=== PATIENT | male | born 1935 | race Caucasian/White ===

== ENCOUNTER 2018-05-10 09:54 | Inpatient (IN) | payer MEDICARE, BC ==
[~2018-05-10] VITALS: Ht 162.6 cm; Wt 97.1 kg
[~2018-05-10 09:54] MED LIST: CEFU500T PO; CYAN10002 IJ; FERR325T14 PO; LEVO750T31 PO; OMEP40CA5 PO; PANT40TA3 PO; PRED20TA PO; VALA10005 PO
[2018-05-10] MEDS ORDERED: IOHEXOL 240 MG/ML 50ML VIAL. PO ONE (10:30)
[2018-05-10] MEDS ORDERED: IOHEXOL 300 MG/ML 75 ML VIAL. IV ONE (10:30)
[2018-05-10 10:31] LABS: BASO # 0.1 x10^3/uL (0.0-0.2); BASO % 1 % (0-3); EOS # 0.1 x10^3/uL (0.0-0.7); EOS % 1 % (0-3); HEMATOCRIT 49.9 % (39.0-53.0); HEMOGLOBIN 16.3 g/dL (13.0-17.5); LYMPH # 2.2 x10^3/uL (1.0-4.8); LYMPH % 17 % (24-48); MEAN CORPUSCULAR HEMOGLOBIN 30 pg (25-35); MEAN CORPUSCULAR HGB CONC 33 g/dL (31-37); MEAN CORPUSCULAR VOLUME 92 fL (79-100); MONO # 0.9 x10^3/uL (0.0-1.1); MONO % 7 % (0-9); NEUT # 9.4 x10^3uL (1.8-7.7); NEUT % 74 % (31-73); PLATELET COUNT 286 x10^3/uL (140-400); RED BLOOD COUNT 5.45 x10^6/uL (4.30-5.70); RED CELL DISTRIBUTION WIDTH 13.5 % (11.5-14.5); WHITE BLOOD COUNT 12.7 x10^3/uL (4.0-11.0)
[2018-05-10 10:42] LABS: ALBUMIN 3.8 g/dL (3.4-5.0); ALBUMIN/GLOBULIN RATIO 0.8 (1.0-1.7); CALCIUM 9.6 mg/dL (8.5-10.1); CREATININE 1.8 mg/dL (0.7-1.3); GFR 36.5; POTASSIUM 4.2 mmol/L (3.5-5.1); TOTAL BILIRUBIN 0.5 mg/dL (0.2-1.0); TOTAL PROTEIN 8.4 g/dL (6.4-8.2)
[2018-05-10 12:05] LABS: CLARITY,URINE HAZY; COLOR,URINE AMBER; GLUCOSE,URINE 100 mg/dL (NEG)
[2018-05-10 12:07] LABS: BACTERIA,URINE 0 /HPF (0-FEW); BILIRUBIN,URINE NEG (NEG); NITRITE,URINE NEG (NEG); RBC,URINE 0 /HPF (0-2); SQUAMOUS EPITHELIAL CELL,UR OCC /LPF; UROBILINOGEN,URINE 0.2 mg/dL (0.2 mg/dL); WBC,URINE 0 /HPF (0-4)
--- NOTE | 2018-05-10 12:22 | RAD ---
CT abdomen and pelvis with oral contrast only: Reason for examination: History of colon cancer. Abdominal pain for 2 days. Helical images were obtained through the abdomen pelvis with no intravenous contrast administered but oral contrast was given (30 cc of Omnipaque 240). Reconstruction was performed in sagittal and coronal planes. Exposure: One or more of the following individualized dose reduction techniques were utilized for this examination: 1. Automated exposure control 2. Adjustment of the mA and/or kV according to patient size 3. Use of iterative reconstruction technique. The lung bases are clear. The heart size is normal with no pericardial effusion evident. No focal abnormality seen at the liver, spleen, adrenal glands or pancreas. There is cholelithiasis present. The kidneys show a small hypodense lesion at the upper pole of the left kidney probably representing a cyst measuring 1.4 cm in greatest dimension. There is a nonobstructing calculus in the lower pole left kidney. There is no hydronephrosis or evidence of obstructive uropathy. The abdominal aorta and inferior vena cava show no acute abnormalities but there is arteriosclerotic vascular calcification. There appears to be a large midline abdominal hernia containing bowel without incarceration. The stomach shows no wall thickening and is not abnormally distended. The small intestinal tract does show some mild dilatation down to the anastomosis in the right lower quadrant. There does not appear to be apparent obstruction or contrast movement through the small intestine. There are some diverticuli in this sigmoid colon but no evidence of diverticulitis. No abnormality seen at the bladder, prostate gland or seminal vesicles. No free fluid or free air is seen in the abdomen or pelvis. IMPRESSION: Small nonobstructing calculus in the lower pole of the left kidney. 1.4 cm lesion probably representing a cyst at the upper pole of the left kidney. Mild dilatation of small intestine to the colonic anastomosis but no apparent obstruction evident. Diverticuli in the sigmoid colon without diverticulitis. Electronically signed by: Roxana Jenkins MD (05/10/2018 12:18 PM) [facility] [place]
[2018-05-10] MEDS ORDERED: IV NORMAL SALINE 1,000ML 1,000 ML IV ONE (12:45)
[2018-05-10] MEDS ORDERED: ONDANSETRON PF 4 MG/2 ML VIAL. IV ONE (13:30)
[2018-05-10 14:40] VITALS: BP 116/69
[2018-05-10] MEDS: IV NORMAL SALINE 1,000ML 1,000 ML IV SCH (15:00)
--- NOTE | 2018-05-10 15:26 | PHYS DOC ---
Past History Past Medical History: Cancer, Other Past Surgical History: Cancer Surgery, Tonsillectomy, Other Alcohol Use: None Drug Use: None Adult General Chief Complaint Chief Complaint: ABDOMINAL PAIN HPI HPI Patient is a 82 year old male who presents with complaining of abdominal pain. Patient complaining of hematemesis episodes of cramping pain in area of ventral hernia since last night and last for a few minutes and repeated frequently with nausea and anorexia. Patient states he had a bowel movement yesterday morning and had flatus but his states he did not have any bowel movement since yesterday morning and had decrease of passing gas. Patient had history of colon cancer resection 3 years ago and developing give very large ventral hernia and his surgeon did not recommend surgical repair. Patient rated his pain as 0 at arrival to ER and during episodes of pain is 7/10. Patient denies chest pain, shortness of breath, fever and chills, urinary symptoms. Review of Systems Review of Systems Constitutional: Denies fever or chills [] Eyes: Denies change in visual acuity, redness, or eye pain [] HENT: Denies nasal congestion or sore throat [] Respiratory: Denies cough or shortness of breath [] Cardiovascular: No additional information not addressed in HPI [] GI: Reports abdominal pain, nausea, denies vomiting, bloody stools or diarrhea [ ] : Denies dysuria or hematuria [] Musculoskeletal: Denies back pain or joint pain [] Integument: Denies rash or skin lesions [] Neurologic: Denies headache, focal weakness or sensory changes [] Endocrine: Denies polyuria or polydipsia [] All other systems were reviewed and found to be within normal limits, except as documented in this note. Current Medications Current Medications Current Medications Medications (Trade) Dose Ordered Sig/Chasity Start Time Stop Time Status Last Admin Dose Admin Iohexol (Omnipaque 240 Mg/ml) 30 ml 1X ONCE 05/10/18 10:30 05/10/18 10:31 DC Iohexol (Omnipaque 300 Mg/ml) 75 ml 1X ONCE 05/10/18 10:30 05/10/18 10:31 DC Sodium Chloride 1,000 ml @ 100 mls/hr 1X ONCE 05/10/18 12:45 05/10/18 22:44 05/10/18 13:20 100 MLS/HR Allergies Allergies Allergies Coded Allergies Type Severity Reaction Last Updated Verified meperidine Allergy Severe 05/02/15 Yes Physical Exam Physical Exam Constitutional: Well developed, well nourished, no acute distress, non-toxic appearance. [] HENT: Normocephalic, atraumatic, oropharynx moist, no oral exudates, nose normal. [] Eyes: PERRLA, EOMI, conjunctiva normal, no discharge. [] Neck: Normal range of motion, no tenderness, supple, no stridor. [] Cardiovascular:Heart rate regular rhythm, no murmur [] Lungs & Thorax: Bilateral breath sounds clear to auscultation [] Abdomen: Very very large ventral hernia without tenderness, bowel sounds normal , soft, no tenderness, no masses, no pulsatile masses. [] Skin: Warm, dry, no erythema, no rash. [] Back: No tenderness, no CVA tenderness. [] Extremities: No tenderness, no cyanosis, no clubbing, ROM intact, no edema. [] Neurologic: Alert and oriented X 3, normal motor function, normal sensory function, no focal deficits noted. [] Psychologic: Affect normal, judgement normal, mood normal. [] Current Patient Data Vital Signs Vital Signs Date Time Temp Pulse Resp B/P (MAP) Pulse Ox O2 Delivery O2 Flow Rate FiO2 05/10/18 13:50 96 05/10/18 13:06 89 18 134/87 (103) Room Air 05/10/18 09:54 97.6 Lab Results Laboratory Tests Test 05/10/18 10:13 05/10/18 11:24 White Blood Count 12.7 x10^3/uL (4.0-11.0) H Red Blood Count 5.45 x10^6/uL (4.30-5.70) Hemoglobin 16.3 g/dL (13.0-17.5) Hematocrit 49.9 % (39.0-53.0) Mean Corpuscular Volume 92 fL (79-100) Mean Corpuscular Hemoglobin 30 pg (25-35) Mean Corpuscular Hemoglobin Concent 33 g/dL (31-37) Red Cell Distribution Width 13.5 % (11.5-14.5) Platelet Count 286 x10^3/uL (140-400) Neutrophils (%) (Auto) 74 % (31-73) H Lymphocytes (%) (Auto) 17 % (24-48) L Monocytes (%) (Auto) 7 % (0-9) Eosinophils (%) (Auto) 1 % (0-3) Basophils (%) (Auto) 1 % (0-3) Neutrophils # (Auto) 9.4 x10^3uL (1.8-7.7) H Lymphocytes # (Auto) 2.2 x10^3/uL (1.0-4.8) Monocytes # (Auto) 0.9 x10^3/uL (0.0-1.1) Eosinophils # (Auto) 0.1 x10^3/uL (0.0-0.7) Basophils # (Auto) 0.1 x10^3/uL (0.0-0.2) Prothrombin Time 9.7 SEC (9.4-11.4) Prothrombin Time INR 1.0 (0.9-1.1) PTT 27 SEC (23-33) Sodium Level 139 mmol/L (136-145) Potassium Level 4.2 mmol/L (3.5-5.1) Chloride Level 99 mmol/L (98-107) Carbon Dioxide Level 30 mmol/L (21-32) Anion Gap 10 (6-14) Blood Urea Nitrogen 15 mg/dL (8-26) Creatinine 1.8 mg/dL (0.7-1.3) H Estimated GFR (Cockcroft-Gault) 36.5 BUN/Creatinine Ratio 8 (6-20) Glucose Level 157 mg/dL (70-99) H Calcium Level 9.6 mg/dL (8.5-10.1) Total Bilirubin 0.5 mg/dL (0.2-1.0) Aspartate Amino Transferase (AST) 16 U/L (15-37) Alanine Aminotransferase (ALT) 19 U/L (16-63) Alkaline Phosphatase 72 U/L (46-116) Total Protein 8.4 g/dL (6.4-8.2) H Albumin 3.8 g/dL (3.4-5.0) Albumin/Globulin Ratio 0.8 (1.0-1.7) L Lipase 87 U/L (73-393) Urine Collection Type Unknown Urine Color [place] Urine Clarity Hazy Urine pH 5.5 Urine Specific [place] 1.025 Urine Protein 100 mg/dl (NEG-TRACE) Urine Glucose (UA) 100 mg/dL (NEG) Urine Ketones (Stick) 15 mg/dL (NEG) Urine Blood Neg (NEG) Urine Nitrite Neg (NEG) Urine Bilirubin Neg (NEG) Urine Urobilinogen Dipstick 0.2 mg/dL (0.2 mg/dL) Urine Leukocyte Esterase Neg (NEG) Urine RBC 0 /HPF (0-2) Urine WBC 0 /HPF (0-4) Urine Squamous Epithelial Cells Occ /LPF Urine Bacteria 0 /HPF (0-FEW) Urine Mucus Mod /LPF EKG EKG [] Radiology/Procedures Radiology/Procedures [address] [address] IMAGING REPORT Signed PATIENT: ELIAZAR LERNER ACCOUNT: [id number] : 1935 LOCATION: ER AGE: 82 SEX: M EXAM STATUS: REG ER ORD. PHYSICIAN: NEERU BELLA MD REASON: abd pain PROCEDURE: CT ABD PEL W/ORAL CONTRST ONLY CT abdomen and pelvis with oral contrast only: Reason for examination: History of colon cancer. Abdominal pain for 2 days. Helical images were obtained through the abdomen pelvis with no intravenous contrast administered but oral contrast was given (30 cc of Omnipaque 240). Reconstruction was performed in sagittal and coronal planes. Exposure: One or more of the following individualized dose reduction techniques were utilized for this examination: 1. Automated exposure control 2. Adjustment of the mA and/or kV according to patient size 3. Use of iterative reconstruction technique. The lung bases are clear. The heart size is normal with no pericardial effusion evident. No focal abnormality seen at the liver, spleen, adrenal glands or pancreas. There is cholelithiasis present. The kidneys show a small hypodense lesion at the upper pole of the left kidney probably representing a cyst measuring 1.4 cm in greatest dimension. There is a nonobstructing calculus in the lower pole left kidney. There is no hydronephrosis or evidence of obstructive uropathy. The abdominal aorta and inferior vena cava show no acute abnormalities but there is arteriosclerotic vascular calcification. There appears to be a large midline abdominal hernia containing bowel without incarceration. The stomach shows no wall thickening and is not abnormally distended. The small intestinal tract does show some mild dilatation down to the anastomosis in the right lower quadrant. There does not appear to be apparent obstruction or contrast movement through the small intestine. There are some diverticuli in this sigmoid colon but no evidence of diverticulitis. No abnormality seen at the bladder, prostate gland or seminal vesicles. No free fluid or free air is seen in the abdomen or pelvis. IMPRESSION: Small nonobstructing calculus in the lower pole of the left kidney. 1.4 cm lesion probably representing a cyst at the upper pole of the left kidney. Mild dilatation of small intestine to the colonic anastomosis but no apparent obstruction evident. Diverticuli in the sigmoid colon without diverticulitis. Electronically signed by: Amor Salmoon MD (05/10/2018 12:18 PM) [facility] [place] DICTATED AND SIGNED BY: AMOR SALOMON MD DATE: 05/10/18 1205 CC: MARCELLO OSCAR MD; NEERU BELLA MD ~ Course & Med Decision Making Course & Med Decision Making Pertinent Labs and Imaging studies reviewed. (See chart for details) Evaluation of patient in ER showed 82-year-old male patient with history of colon cancer and large ventral hernia presented with cramping abdominal pain since yesterday. Patient did not want to have pain medication but later on was uncomfortable and fentanyl was given. CT did not show obstruction. Because of very large ventral hernia and history of bowel obstruction plan to admit patient. Dr. Oscar accepted admission at 1235. Dragon Disclaimer Dragon Disclaimer This electronic medical record was generated, in whole or in part, using a voice recognition dictation system. Departure Departure: Impression: Primary Impression: Abdominal pain Additional Impressions: Ventral incisional hernia Leukocytosis Renal insufficiency History of colon cancer Disposition: 09 ADMITTED INPATIENT (at 1236) Admitting Physician: Marcello Oscar (accepted admission at 1235) Condition: IMPROVED Referrals: MARCELLO OSCAR MD (PCP) Problem Qualifiers NEERU BELLA MD May 10, 2018 15:26
[2018-05-10 19:38] VITALS: BP 127/81
[2018-05-10 23:08] VITALS: BP 109/67
[2018-05-11] MEDS: IV NORMAL SALINE 1,000ML 1,000 ML IV SCH (02:50)
[2018-05-11 05:30] VITALS: BP 113/68
[2018-05-11 11:07] LABS: BASO % 0 % (0-3); EOS # 0.2 x10^3/uL (0.0-0.7); EOS % 2 % (0-3); HEMATOCRIT 43.9 % (39.0-53.0); HEMOGLOBIN 14.7 g/dL (13.0-17.5); LYMPH # 2.1 x10^3/uL (1.0-4.8); LYMPH % 23 % (24-48); MEAN CORPUSCULAR HEMOGLOBIN 31 pg (25-35); MEAN CORPUSCULAR HGB CONC 33 g/dL (31-37); MEAN CORPUSCULAR VOLUME 92 fL (79-100); MONO # 0.9 x10^3/uL (0.0-1.1); MONO % 10 % (0-9); NEUT % 66 % (31-73); PLATELET COUNT 208 x10^3/uL (140-400); RED BLOOD COUNT 4.79 x10^6/uL (4.30-5.70); RED CELL DISTRIBUTION WIDTH 13.1 % (11.5-14.5); WHITE BLOOD COUNT 9.1 x10^3/uL (4.0-11.0)
--- NOTE | 2018-05-11 11:18 | HP ---
ADMIT DATE: 05/10/2018 HISTORY OF PRESENT ILLNESS: The patient is an 82-year-old male patient who came to the Emergency Room complaining of abdominal pain. He did complain of hematemesis and episodes of cramping pain in the area of ventral hernia since the night before admission. It lasts for a few minutes and repeated frequently with nausea and anorexia. The patient states that he had a bowel movement the day before admission and had flatus, but his stated that he did not have any bowel movement since the day before admission and had decreasing passing gas. The patient apparently has a history of colon cancer resection about 3 years ago and after that he developed a very large ventral hernia; however, his surgeon did not recommend any surgical repair. The patient rated his pain as 0 at arrival to the ER and during episodes of pain 7/10. He denied any chest pain, shortness of breath, fever, chills, dysuria, frequency, or hematuria. He was evaluated in the Emergency Room and his CT scan of the abdomen and pelvis showed that there appears to be a large midline abdominal hernia containing bowel without incarceration. The stomach shows no wall thickening and is not abnormally distended. The small intestinal track does show some mild dilatation down to the anastomosis in the right lower quadrant. There does not appear to be apparent obstruction or contrast movement through the small intestine. There are some diverticula in the sigmoid colon, but no evidence of diverticulitis. There is no abnormality seen at the bladder, prostate gland, or seminal vesicles. There is no free fluid or free air is seen in the abdomen or pelvis. The patient was admitted with abdominal hernia, ventral incisional hernia. His lab work showed that his creatinine slightly elevated at 1.8. His white cell count was slightly elevated at 12.7. He was admitted, started on IV fluid, and also clear liquid diet. We will observe him closely, and if he obviously has more symptoms, we will consider surgical consult transfer to appropriate hospital. PAST MEDICAL HISTORY: Significant for colon cancer, treated surgically before and was followed by Dr. Del Cid for this. He has ventral incisional hernia, which is monitored as well, coronary artery disease with status post PTCA with stent deployment, COPD, seizure disorder. He was on Keppra. He has also atrial fibrillation. Other medical problems include chronic kidney disease, type 2 diabetes, as well as hypertension. PAST SURGICAL HISTORY: Include surgical resection with partial colectomy, with resultant incisional hernia. FAMILY HISTORY: Unremarkable. SOCIAL HISTORY: He is and lives with his . He does not smoke, drink alcohol, or use any recreational drugs. ALLERGIES: HE IS ALLERGIC TO MEPERIDINE. MEDICATIONS: He is currently on following medications: He is on cyanocobalamin 1000 mcg intramuscularly once a month, ferrous sulfate 325 mg once a day. He is on omeprazole 40 mg once a day, prednisone 20 mg p.o. 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 REVIEW OF SYSTEMS: As per history of present illness. PHYSICAL EXAMINATION: GENERAL: On arrival to the Emergency Room, he looked well and was clearly in no apparent respiratory distress. No pallor, jaundice, cyanosis, or thyromegaly. No jugular venous distension. No lower limb edema. VITAL SIGNS: His heart rate was 101, blood pressure was 123/75, temperature was 97.6, respiratory rate 22, and oxygen saturation was 94% on room air. HEAD, EYES, EARS, NOSE, AND THROAT: Showed normocephalic, atraumatic. NECK: Supple. HEART: Showed normal first and second heart sounds. No gallop, rub, or murmur. CHEST: Clear to auscultation. No crepitation or rhonchi. ABDOMEN: Distended, soft, nontender. He has a large incisional hernia without any tenderness. There is no guarding or rigidity. Bowel sounds are normal, no pulsatile masses. NEUROLOGIC: He was awake, alert, oriented x 3, with normal motor and sensory function. No focal deficit. LABORATORY DATA: On arrival to the Emergency Room showed a white cell count 12,700, hemoglobin 16, hematocrit 49.9, MCV 92, and platelet count of 286,000. His serum sodium was 139, potassium 4.2, chloride 99, bicarbonate 30, anion gap of 10, BUN 15, creatinine 1.8, estimated GFR was 36.5, glucose 157, calcium was 9.6. Total bilirubin, AST, ALT, alkaline phosphatase were normal. Total protein was 8.4, albumin was 3.8, and lipase was 87. His urinalysis showed the urine was bartolo, hazy with a pH of 5.5, specific gravity 1.025. There is large amount of protein, small amount of ketones, large amount of glucose, negative for blood, nitrite, and leukocyte esterase. There are no rbc's, no wbc's, and no bacteria. His prothrombin time was 9.7, INR of 1, aPTT was 27. His CT scan of the abdomen showed that the lung bases are clear. The heart size is normal with no pericardial effusion evident. No focal abnormality seen in the liver, spleen, adrenal glands, or the pancreas. There is cholelithiasis present. The kidneys show a small hypodense lesion in the upper pole of the left kidney, probably representing a cyst measuring 1.4 cm in greatest dimension. There is a nonobstructing calculus in the lower pole of the left kidney. There is no hydronephrosis or evidence of obstructive uropathy. The abdominal aorta and inferior vena cava showed no acute abnormalities, but there is atherosclerotic vascular calcification. There appears to be large midline abdominal hernia containing bowel without incarceration. The stomach shows no wall thickening and is not abnormally distended. The small intestinal track does show some mild dilatation down to the anastomosis in the right lower quadrant. There does not appear to be apparent obstruction or contrast movement through the small intestine. There are some diverticula in the sigmoid colon, but no evidence of diverticulitis, no abnormality seen in the bladder, prostate gland and seminal vesicles. No free fluid or free air is seen in the abdomen and pelvis. ASSESSMENT AND PLAN: The patient was admitted, continued on IV fluid, started on a clear liquid diet. We will monitor him closely and obviously if he has no further episodes of nausea, vomiting, has passing gas, had bowel movement, will advance diet as tolerated. JUAN DAVID CASH MD DR: DARIO/augustine JOB#: [id number] / [id number]
[2018-05-11 11:21] LABS: ALBUMIN/GLOBULIN RATIO 0.8 (1.0-1.7); CALCIUM 8.3 mg/dL (8.5-10.1); CREATININE 1.5 mg/dL (0.7-1.3); POTASSIUM 4.4 mmol/L (3.5-5.1); TOTAL BILIRUBIN 0.4 mg/dL (0.2-1.0); TOTAL PROTEIN 6.8 g/dL (6.4-8.2)
[2018-05-11 11:54] VITALS: BP 105/60
--- NOTE | 2018-05-11 13:50 | DS ---
DATE OF DISCHARGE: 05/11/2018 HOSPITAL COURSE: The patient is an 82-year-old male patient who came to the Emergency Room with complaint of recurrent bouts of nausea, vomiting as well as abdominal pain, had an episode of a cramping abdominal pain in the area of ventral hernia since the night before admission. It lasted only for a few minutes and ____ frequently with nausea and vomiting. The patient apparently had a history of colon cancer, resection about 3 years ago. After that, he developed a very large ventral incisional hernia; however, his surgeon did not recommend any surgical repair. He was admitted initially and extensive evaluation showed no evidence of any bowel obstruction. He was started on IV fluid and clear liquid diet that we advanced. He tolerated very well. He was noted to be hypoxic, did 6-minute walk. The patient was discharged. His lab work showed that he was slightly dehydrated, has a slightly elevated white cell count. He did very well, tolerated his liquid diet without any problem and he advanced diet as tolerated and did very well, has had no further pain, no nausea, no vomiting and a decision was made to discharge him home on home oxygen. PHYSICAL EXAMINATION: GENERAL: When I saw him this afternoon, he was sitting on the edge of the bed comfortably in no apparent respiratory distress. No pallor, jaundice, cyanosis, or thyromegaly. No jugular venous distension. No limb edema. VITAL SIGNS: Her heart rate was 68, blood pressure 105/60, his temperature was 98.1, respiratory rate was 16, and oxygen saturation was 96% on 2 liters of oxygen by nasal cannula. HEAD, EYES, EARS, NOSE AND THROAT: Showed normocephalic, atraumatic. NECK: Supple. HEART: Showed normal first and second heart sounds. No gallop, rub or murmur. CHEST: Clear to auscultation. No crepitation or rhonchi. ABDOMEN: Distended, soft, nontender. No guarding or rigidity. No organomegaly. Hernial orifice intact. Bowel sounds normal. NEUROLOGIC: He was awake, alert, responding appropriately. All cranial nerves intact. He moves extremities without difficulty. LABORATORY DATA: Repeat lab work this morning showed a white cell count of 9100, hemoglobin 14.7, hematocrit 43.9, MCV 92, and platelet count of 208,000. Her serum sodium was 141, potassium 4.4, chloride 104, bicarbonate 33, anion gap of 4, BUN of 13, creatinine 1.5, estimated GFR was 45 mL per minute, his glucose 106, calcium was 8.3. Total bilirubin, AST, ALT, alkaline phosphatase were normal. His total protein was 6.8, albumin 3. His prothrombin time was normal and urinalysis was essentially unremarkable. DISCHARGE MEDICATIONS: He was discharged home to continue on home oxygen with a clear advice to go to [facility]. REVIEW OF SYMPTOMS: ____. FINAL DISCHARGE DIAGNOSES: Recurrent bouts of nausea, vomiting, abdominal pain has resolved, the cause of which is not very clear. [id number] kidney injury, resolved. Large ventral incisional hernia with no evidence of any obstruction has chronic obstructive pulmonary disease, coronary artery disease, status post PCI with stent deployment, seizure disorder, chronic kidney disease, type 2 diabetes and hypertension. JUAN DAVID CASH MD DR: DARIO/augustine JOB#: [id number] / [id number]
== END 2018-05-11 13:49 | disposition home health service (06) | DRG 391 ==
LOC: ER 09:54 → 1 SOUTH 12:59
PROVIDERS: ADMIT Family Medicine; ATTEND Family Medicine
DX: R10.9 Unspecified abdominal pain (principal); N17.0 Acute kidney failure with tubular necrosis; K43.2 Incisional hernia without obstruction or gangrene; D72.829 Elevated white blood cell count, unspecified; E11.22 Type 2 diabetes mellitus with diabetic chronic kidney disease; E86.0 Dehydration; G40.909 Epilepsy, unspecified, not intractable, without status epilepticus; I12.9 Hypertensive chronic kidney disease with stage 1 through stage 4 chronic kidney disease, or unspecified chronic kidney disease; I25.10 Atherosclerotic heart disease of native coronary artery without angina pectoris; I48.91 Unspecified atrial fibrillation; J44.9 Chronic obstructive pulmonary disease, unspecified; K57.30 Diverticulosis of large intestine without perforation or abscess without bleeding; N18.9 Chronic kidney disease, unspecified; K80.20 Calculus of gallbladder without cholecystitis without obstruction; N20.0 Calculus of kidney; R09.02 Hypoxemia; Z85.038 Personal history of other malignant neoplasm of large intestine; Z95.5 Presence of coronary angioplasty implant and graft; Z88.8 Allergy status to other drugs, medicaments and biological substances; Z79.84 Long term (current) use of oral hypoglycemic drugs
CPT/HCPCS: 36415; 74176; 80053; 81001; 83615; 83690; 85025; 85610; 85730; 90471; 90756; 96374; 96375; J2405; J3010; 99285-25; J7030; Q2035

== ENCOUNTER → 2018-12-10 | Outpatient (CLI) | payer MEDICARE, BC ==
[~2018-12-10] MED LIST changes: +IOHEXOL 240 MG/ML 50ML VIAL. ONE; +IOHEXOL 300 MG/ML 75 ML VIAL. IV ONE
--- NOTE | 2018-12-10 10:26 | RAD ---
Examination: CT chest abdomen pelvis with IV contrast HISTORY: History of colon cancer, follow-up Comparison: 05/10/2018 TECHNIQUE: Axial CT images of the chest abdomen pelvis were performed with IV contrast. Coronal and sagittal reformats are performed Exposure: One or more of the following individualized dose reduction techniques were utilized for this examination: 1. Automated exposure control 2. Adjustment of the mA and/or kV according to patient size 3. Use of iterative reconstruction technique FINDINGS: The visualized thyroid gland grossly appears unremarkable. The central airways are patent. The heart size grossly appears unremarkable. Coronary artery calcifications. Small calcified mediastinal lymph nodes identified. Linear scarring changes identified in the left lung base similar to prior exam. No evidence of pleural effusion or pneumothorax. There is mild diffuse decreased attenuation noted in the liver likely hepatic steatosis. There is a cystic structure identified in the right lobe of the liver measuring 1.4 cm similar to prior exam. The visualized spleen, adrenals grossly appears unremarkable. Collapsed appearing gallbladder. Small densities identified in the gallbladder probably gallstones. The stomach is mildly distended. The visualized pancreas grossly appears unremarkable. The small bowel is nondilated. Feces and gas noted in the colon. Multiple sigmoid colon diverticulosis. Surgical changes identified in the colon. The bilateral kidneys enhance symmetrically. Cystic structure identified in the bilateral kidneys likely cysts. There is a 1.9 cm density identified in the left kidney could be lobulation or mass. Moderate aortic atherosclerosis. Urinary bladder is mildly distended. IMPRESSION: 1. 1.9 cm density identified in the left kidney could be cortical lobulation or mass. Recommend ultrasound for further evaluation. 2. 1.4 cm cystic structure identified in the liver likely a cyst similar to prior exam. Hepatic steatosis. 3. Surgical changes identified in the colon. 4. Sigmoid colon diverticulosis. Mild thickened appearance of the sigmoid colon wall probably due to nondistention. 5. Cholelithiasis. Electronically signed by: Olu Fields MD (12/10/2018 10:23 AM) [place] [id number]
== END | disposition home or self-care (01) ==
LOC: CT 08:16
PROVIDERS: ATTEND Internal Medicine Hematology & Oncology
DX: K76.0 Fatty (change of) liver, not elsewhere classified (principal); K57.30 Diverticulosis of large intestine without perforation or abscess without bleeding; K80.20 Calculus of gallbladder without cholecystitis without obstruction; Q44.6 Cystic disease of liver; I70.0 Atherosclerosis of aorta; Z85.038 Personal history of other malignant neoplasm of large intestine
CPT/HCPCS: 71260; 74177; Q9967

== ENCOUNTER → 2019-03-11 | Outpatient (CLI) | payer MEDICARE, BC ==
[~2019-03-11] MED LIST changes: -IOHEXOL 300 MG/ML 75 ML VIAL. IV ONE; +OMEP40CA45 PO; -OMEP40CA5 PO
--- NOTE | 2019-03-11 12:02 | RAD ---
CT study chest and abdomen and pelvis without contrast Clinical indications: Follow-up of colon cancer. TECHNIQUE: GI contrast was administered per mouth. Patient refused intravenous contrast. Without IV contrast, the sensitivity to detect organ pathology is decreased. Helical CT scanning of the abdomen and pelvis was performed. PQRS compliance Statement One or more of the following individualized dose reduction techniques were utilized for this study: 1. Automated exposure control 2. Adjustment of the mA and/or kV according to patient size 3. Use of iterative reconstruction technique Comparison: December 10, 2018. CHEST CT: Calcified old granulomatous lymph nodes are seen within the mediastinum and right hilum. Otherwise no enlarged thoracic lymphadenopathy is evident. No focal aneurysmal dilatation of the thoracic aorta is seen. The heart size is normal and no pericardial effusion is evident. Mild calcified atheromatous disease of the coronary arteries is seen. Calcified granuloma of the right lower lobe is seen. On images, 54-55 and series 2, there is a new posterior left lower lobe lung nodule measuring 3 mm in size. No other lung nodule is evident. No lung consolidation is seen. There is chronic linear scarring. Centrilobular emphysema of the the upper lobes is seen. No pleural effusion or pneumothorax is evident. The proximal bronchial tree is patent. No lytic process is seen. IMPRESSION: New small 3 mm lung nodule of the left lower lobe. No other new abnormality. Calcified atheromatous disease of the coronary arteries. ABDOMEN AND PELVIS CT: Again seen is a cyst of the right lobe of the liver which is unchanged. No new hepatic lesion is seen on this noncontrast study. The spleen is not enlarged. Pancreas is homogeneous in appearance on this noncontrast study. Radiopaque gallstones are seen within the gallbladder. Gallbladder is contracted. This is a chronic finding. No extra hepatic biliary ductal dilatation is seen. No adrenal mass is evident. Small nonobstructing punctate stone of lower pole of the left kidney is seen. No hydronephrosis or hydroureter or ureteral stone is evident. Again seen are hypodense nodules of the left kidney which are less well-defined in today's study due to lack of IV contrast. Hounsfield units measurements on the previous study were under 20 and therefore most likely represent cysts. On the previous study, a cortical lobulation was seen worrisome for a left renal mass. This measured almost 2 cm in size on the previous study. This is difficult to evaluate without intravenous contrast. Lobulation has not changed in size. No focal aneurysmal dilatation of the abdominal aorta is seen. No enlarged abdominal or pelvic lymphadenopathy is evident. The prostate gland is enlarged and measures 5.6 cm transversely. Urinary bladder wall is smooth. Sigmoid diverticulosis is seen without diverticulitis. Right hemicolectomy is evident. No obstructive bowel pattern is evident. No soft tissue mass is seen. Peristaltic contraction of the antrum stomach is seen. No free air or or free fluid or mesenteric edema is seen. No lytic process is seen. IMPRESSION: Stable cyst of the liver. Cholelithiasis. Chronic contraction of the gallbladder. Left renal cortical lesion which may represent a small renal neoplasm. This is better visualized on the previous CT study of the abdomen and is not well-visualized today without IV contrast. It is located within the lateral aspect of the upper pole of the left kidney. Further evaluation with renal ultrasound is recommended first. Nonobstructing punctate stone of lower pole of the left kidney. Enlarged prostate gland. Sigmoid diverticulosis without diverticulitis. Electronically signed by: Patrick Gamino MD (03/11/2019 11:59 AM) [facility]
== END | disposition home or self-care (01) ==
LOC: CT 07:51
PROVIDERS: ATTEND Internal Medicine Hematology & Oncology
DX: C19 Malignant neoplasm of rectosigmoid junction (principal); J98.4 Other disorders of lung; I25.10 Atherosclerotic heart disease of native coronary artery without angina pectoris; J43.2 Centrilobular emphysema; R91.1 Solitary pulmonary nodule; K76.89 Other specified diseases of liver; K80.20 Calculus of gallbladder without cholecystitis without obstruction; N28.89 Other specified disorders of kidney and ureter; K57.20 Diverticulitis of large intestine with perforation and abscess without bleeding
CPT/HCPCS: 71250; 74176

== ENCOUNTER → 2019-10-20 | Outpatient (CLI) | payer MEDICARE, BC ==
[~2019-10-20] MED LIST changes: +IOHEXOL 300 MG/ML 75 ML VIAL. IV ONE
--- NOTE | 2019-10-20 10:15 | RAD ---
CT chest abdomen pelvis without contrast Indication: Colon cancer Technique: Noncontrast CT imaging was performed of the chest, abdomen, pelvis, multiplanar reconstruction images submitted. Oral contrast was given. One or more of the following individualized dose reduction techniques were utilized for this examination: 1. Automated exposure control 2. Adjustment of the mA and/or kV according to patient size 3. Use of iterative reconstruction technique. Comparison: March 11, 2019 CHEST: Findings: There is increased mild atelectasis of the left lower lobe, previously seen small left lower lobe nodule not well-visualized on this exam. No new convincing pulmonary nodularity is identified. There is emphysema with upper zone predominance. There is no pleural or pericardial fluid, pneumothorax, or lobar infiltrate. There are again some calcified mediastinal and right hilar nodes also calcified right lower lobe lung nodule. There is again coronary calcification. There is calcification of the aortic valvular leaflets. Thoracic aortic caliber is within normal limits. There are again multiple small mediastinal nodes. There is again right gynecomastia. IMPRESSION: 1. There is increased left lower lobe atelectasis, previously seen small left lower lobe nodule not well-visualized on this exam. No new suspicious pulmonary nodularity is identified. 2. There is emphysema. There is coronary calcification. Abdomen pelvis FINDINGS: There is again colonic diverticulosis greatest of the sigmoid colon and ascending colon. While not well distended during exam, there is appearance of long segment sigmoid colonic wall thickening extending to the rectum and also of most of the descending colon, not associated with significant adjacent localized inflammatory change. Bowel is not significantly dilated. There again has been right hemicolectomy. Accurate evaluation of abdominal visceral organs is limited without intravenous contrast, no new obvious abnormality of the liver, pancreas, or spleen. There is stable hypodense lesion of the right lobe of liver about 1.4 cm, density measurements of a cyst. There is again cholelithiasis. There is no adrenal nodularity. There is similar strandy change of the perinephric fat greater on the left. There is no hydronephrosis of either kidney. There are a couple of tiny adjacent inferior left renal calculi measuring less than 0.2 cm as seen previously. There is again focus of exophytic density arising from the mid to superior left kidney estimated about 1.8 cm CC grossly similar compared with December 10, 2018 exam when was seen to enhance to a similar degree as adjacent renal parenchyma, internal density measurements on this exam not of a simple cyst at 28 Hounsfield units. There is atherosclerotic calcification of the abdominal aorta and iliac arteries. There is again prostatomegaly indenting the base of urinary bladder. There is L4-5 degenerative disc disease. There is lumbar facet degenerative change. No new significantly enlarged nodes are identified. IMPRESSION: 1.There is again suspected mid to superior left renal mass concerning for renal cell carcinoma until proven otherwise. 2. There is now appearance of long segment wall thickening throughout the sigmoid colon to the rectum and involving most of the descending colon concerning for colitis rather than diverticulitis given the long segment of involvement, although no adjacent inflammatory-type change. There is sigmoid diverticulosis. 3. There again small inferior left renal calculi. 4. There is cholelithiasis. 5. There is again prostatomegaly. Electronically signed by: Alex Wong MD (10/20/2019 10:12 AM) [id number]
== END ==
LOC: CT 07:46
PROVIDERS: ATTEND Internal Medicine Hematology & Oncology
DX: C19 Malignant neoplasm of rectosigmoid junction (principal); J98.11 Atelectasis; J43.9 Emphysema, unspecified; I25.10 Atherosclerotic heart disease of native coronary artery without angina pectoris; I70.0 Atherosclerosis of aorta; K80.20 Calculus of gallbladder without cholecystitis without obstruction; N20.0 Calculus of kidney; K57.30 Diverticulosis of large intestine without perforation or abscess without bleeding; M51.36 Other intervertebral disc degeneration, lumbar region
CPT/HCPCS: 71250; 74176

== ENCOUNTER 2020-06-30 12:22 | Emergency (ER) | payer MEDICARE, BC ==
[~2020-06-30] VITALS: Ht 162.6 cm; Wt 99.6 kg
[~2020-06-30 12:22] MED LIST changes: -IOHEXOL 240 MG/ML 50ML VIAL. ONE; -IOHEXOL 300 MG/ML 75 ML VIAL. IV ONE
--- NOTE | 2020-06-30 12:46 | PHYS DOC ---
Past History Past Medical History: Cancer, Other Past Surgical History: Cancer Surgery, Tonsillectomy, Other Alcohol Use: None Drug Use: None General Adult EDM: Chief Complaint: MULTIPLE COMPLAINTS HPI: HPI: 84 yo M PMH colon cancer (unsure staging, dc'ed oral chemo 1 yr ago) w/h/o 7 abdominal surgeries 2/2 colon ca, presents to the ED with complaints of difficulty with voiding that started on Friday, postoperative from robotic assisted laparoscopic cholecystectomy with Dr. Pierre. Patient complains of urinary urgency with only "dribbles," of urine. Pt c/o "blow outs" described a loose/watery, light brown bowel movements such that patient has soiled his clothing. Last bowel movement was this morning. reports patient follows with Aubree Gonzalez, [facility] and has an MRI of his kidneys scheduled in 3-1/2 weeks. Review of Systems: Review of Systems: Constitutional: Denies fever or chills Eyes: Denies change in visual acuity HENT: Denies nasal congestion or sore throat Respiratory: Denies cough or shortness of breath Cardiovascular: Denies chest pain or edema GI: Denies nausea, vomiting, melena or hematochezia : Denies dysuria, hematuria, urinary or bowel retention Musculoskeletal: Denies back pain, saddle anesthesia, CVA tenderness or joint pain Integument: Denies rash or diaphoresis Neurologic: Denies headache, neck pain, focal weakness or sensory changes Endocrine: Denies polyuria or polydipsia Lymphatic: Denies swollen glands Psychiatric: Denies depression or anxiety Allergies: Allergies: Allergies Coded Allergies Type Severity Reaction Last Updated Verified meperidine Allergy Severe 05/02/15 Yes Physical Exam: PE: Constitutional: Well developed, in pain, ambulatory HENT: Normocephalic, atraumatic, Eyes: EOMI, conjunctiva normal, no discharge. Neck: Normal range of motion, supple, Cardiovascular: S1/2 present, regular rhythm Lungs & Thorax: Speaking in full sentences, bilateral equal chest rise, no tachypnea or increased work of breathing Abdomen: soft, distended, laparoscopic sites with no purulent drainage or erythema-or C/D/I, no wound dehiscence, non localized abdominal wall tenderness, no abdominal wall rigidity Skin: Warm, dry, no erythema, no rash. [] Back: No midline tenderness, no CVA tenderness, no saddle anesthesia, Extremities: No tenderness, no cyanosis, no unilateral lower extremity edema Neurologic: Alert and oriented X 3, normal motor function, normal sensory function, no focal deficits noted. [] Psychologic: Affect normal, judgement normal, mood normal. [] EKG: EKG: Sinus rhythm 85 bpm, no axis deviation, normal intervals, no T wave inversions, no ST elevations or ST depressions Radiology/Procedures: Radiology/Procedures: IMAGING REPORT Signed PATIENT: ELIAZAR LERNER ACCOUNT: [id number] : 1935 LOCATION: ER AGE: 84 SEX: M EXAM STATUS: REG ER ORD. PHYSICIAN: ARIE CRENSHAW DO REASON: abd pain PROCEDURE: PORTABLE CHEST 1V XR CHEST 1V History: Reason: abd pain / Spl. Instructions: / History: Comparison: August 23, 2015 Findings: Patchy bibasilar opacities. Possible small layering pleural effusions. Enlarged cardiac size. No pneumothorax. Impression: 1. Patchy bibasilar opacities, may represent atelectasis or developing consolidations. If persistent clinical concern, recommend follow-up. Electronically signed by: Josef Agee DO (06/30/2020 1:01 PM) [id number] DICTATED AND SIGNED BY: JOSEF AGEE DO DATE: 06/30/20 1300 CC: MARCELLO OSCAR MD; ARIE CRENSHAW DO ~MTH0 0 IMAGING REPORT Signed PATIENT: ELIAZAR LERNER ACCOUNT: [id number] : 1935 LOCATION: ER AGE: 84 SEX: M EXAM STATUS: REG ER ORD. PHYSICIAN: ARIE CRENSHAW DO REASON: abd pain 2 days postop lap dulce maria, urinary retention PROCEDURE: CT ABD PEL W/ORAL CONTRST ONLY CT STUDY OF THE ABDOMEN AND PELVIS WITHOUT CONTRAST CLINICAL INDICATIONS: Abdominal pain for 2 days after a laparoscopic cholecy stectomy. Urinary retention. TECHNIQUE: Noncontrast helical CT scanning of the abdomen and pelvis was performed. Without contrast, the sensitivity to detect organ pathology and GI tract pathology is decreased. PQRS compliance Statement One or more of the following individualized dose reduction techniques were utilized for this study: 1. Automated exposure control 2. Adjustment of the mA and/or kV according to patient size 3. Use of iterative reconstruction technique COMPARISON: December 10, 2018. FINDINGS: Again seen is a cyst of the right lobe of the liver. The spleen is not enlarged. No pancreatic enlargement is seen. The gallbladder is surgically absent. No extrahepatic biliary ductal dilatation is seen. No adrenal mass is evident. 2 small nonobstructing punctate stones lower pole left kidney are seen. No hydronephrosis or hydroureter or ureteral stone is seen. Again seen are cysts of the left kidney. However, on the previous study, a lateral upper pole solid nodule is evident. This is not as well delineated today given the lack of IV contrast. Based on the contour bulge, there has been no significant change measuring just under 2 cm. Urinary bladder is distended. Urinary bladder wall is smooth. No focal aneurysmal dilatation of the abdominal aorta is seen. No enlarged abdominal or pelvic lymphadenopathy is evident. Prostate gland is mildly enlarged and indents the floor of the urinary bladder. The prostate gland measures 5.1 transversely. Colonic diverticulosis is seen most prominently involving the sigmoid colon without diverticulitis. There is nondistention of the colon. Enterocolostomy is seen within the anterior mid abdomen. No obstructive bowel pattern is seen. Anterior abdominal wall scarring and edema is seen. On series 2 image 98, there is a small subcutaneous fluid collection within the anterior left lower abdominal wall subcutaneous soft tissues measuring 19 mm. Small abscess is possible if there are clinical findings of such. No lytic process is seen. No lung base consolidation is evident. IMPRESSION: 2 small nonobstructing punctate stones of the lower pole left kidney. No hydronephrosis or hydroureter or ureteral stone is seen. No definite change in size of solid nodule of the upper pole of the left kidney based on contour bulge. Evaluation of the solid lesion is more difficult without IV contrast. Continued CT follow-up with IV contrast is recommended. Urinary bladder distention. Subcutaneous soft tissue edema of the anterior abdominal wall. Possible small abscess or fluid collection measuring 19 mm in size within the anterior left lower abdominal wall. This could represent a small fluid collection due to recent subcutaneous injection if this has been performed. Electronically signed by: Nya Gamino MD (06/30/2020 3:02 PM) [id number] DICTATED AND SIGNED BY: NYA GAMINO MD DATE: 06/30/20 1443 CC: MARCELLO OSCAR MD; [facility] DO ~MTH0 0 Heart Score: C/O Chest Pain: No Risk Factors: Risk Factors: DM, Current or recent (<one month) smoker, HTN, HLP, family history of CAD, obesity. Risk Scores: Score 0 - 3: 2.5% MACE over next 6 weeks - Discharge Home Score 4 - 6: 20.3% MACE over next 6 weeks - Admit for Clinical Observation Score 7 - 10: 72.7% MACE over next 6 weeks - Early Invasive Strategies Course & Med Decision Making: Course & Med Decision Making Pertinent Labs and Imaging studies reviewed. (See chart for details) Concern for postoperative urinary retention, bladder scan by RN on arrival with 20ccs (suspect equipment reading failure). CT with bladder distention. Pool placed w/800cc dark concentrated urine. No infection on U/A. Left renal mass - mri pending. I discussed with Dr. Georges who will see patient in the clinic for DC Pool removal. Patient has a scheduled appointment w/José Mnauel on Fri at 11 AM for well postoperative check. Labs with improving direct bilirubin and liver functions (direct bili 2 days ago was 1.1, AST was 259, ALT 391). No retained stone on CT. On re-eval s/p pool placement, patient with complete resolution of symptoms, no abdominal or back pain, no right upper quadrant pain, no fever, no saddle anesthesia. Abdomen soft with no rigidity or guarding. Will prescribe Flomax for [address] report given to to take to Dr. Georges. Pool changed to leg back-rn w/instructions. Will discharge home with strict ED return precautions were given for fever, saddle anesthesia, worsening abdominal or back pain or lack of urine output. Encouraged urgent outpatient follow-up with PMD and urology as needed for definitive management of posoperative urinary retention. Life-threatening processes were considered but are low suspicion at this time, given history, physical exam and ED workup. Pt was educated on all prescription medications and adverse effects. All patient's questions were answered and pt was stable at time of discharge. Life/limb-threatening differential includes but is not limited to, aortic dissection, aortic aneurysm, acute coronary syndrome, surgical abdomen (appendicitis, cholecystitis, ischemic bowel, strangulated hernia, etc), bowel obstruction or volvulus, bladder outlet obstruction, gastrointestinal bleeding, inflammatory bowel disease, peptic ulcer disease, ACS/CAD, sepsis, diverticular disease, ureterolithiasis, nephrolithiasis, ovarian or testicular torsion, ectopic , vaginal hemorrhage, or genitourinary infection. I spoken with the patient and her caregivers. I explained the patient's condition, diagnoses and treatment plan based on the information available to me at this time. I have answered the patient and her caregiver's questions and addressed any concerns. The patient and her caregivers have a good understandi ng of patient's diagnosis, condition and treatment plan as can be expected at this point. Vital signs have been stable. Patient's condition is stable and appropriate for discharge from the emergency department. Patient will pursue further outpatient evaluation with primary care physician or other designated or consulting physician as outlined in the discharge instructions. The patient and/or caregivers are agreeable to this plan of care and follow-up instructions have been explained in detail. The patient and/or caregivers have received these instructions in written form and have expressed an understanding of the discharge instructions. The patient and/or caregivers are aware that any significant change of condition or worsening of symptoms should prompt immediate return to this or the closest emergency department or call to [phone]. Yusuf Disclaimer: Yusuf Disclaimer: This electronic medical record was generated, in whole or in part, using a voice recognition dictation system. Departure Departure: Impression: Primary Impression: Postoperative urinary retention Additional Impression: Left kidney mass Disposition: DC HOME SELF CARE/HOMELESS Condition: STABLE Referrals: MARCELLO OSCAR MD (PCP) Followup on Friday at 11am, scheduled appt for pool dc and re-evaluation Patient Instructions: Pain Relief Preoperatively and Postoperatively, Urinary Retention, Acute, Male Additional Instructions: FOLLOW WITH UROLOGY: [email or web address] [address], [place] [id number] [place] [facility] [[email or web address]rology [facility] [address] [address] EMERGENCY DEPARTMENT GENERAL DISCHARGE INSTRUCTIONS Thank you for coming to [facility] (ED) today and trusting us with you care. We trust that you had a positivie experience in our Emergency Department. If you wish to speak to the department management, you may call the director at [phone]. YOUR FOLLOW UP INSTRUCTIONS ARE FOLLOWS: 1. Do you have a private Doctor? If you do not have a private doctor, please ask for a resource list of physicians or clinics that may be able to assist you with follow up care. 2. The Emergency Physician has interpreted your x-rays. The X-Ray specialist will also review them. If there is a change in the findings, you will be notified in 48 hours when at all possible. 3. A lab test or culture has been done, your results will be reviewed and you will be notified if you need a change in treatment. ADDITIONAL INSTRUCTIONS AND INFORMATION: 1. Your care today has been supervised by a physician who is specially trained in emergency care. Many problems require more than one evaluation for a complete diagnosis and treatment. We recommend that you schedule your follow up appointment as recommended to ensure complete treatment of you illness or injury. If you are unable to obtain follow up care and continue to have a problem, or if your condition worsens, we recommend that you return to the ED. 2. We are not able to safely determine your condition over the phone nor are we able to give sound medical advice over the phone. For these safety reasons, if you call for medical advice we will ask you to come to the ED for further evaluation. 3. If you have any questions regarding these discharge instructions please call the ED at [phone]. SAFETY INFORMATION: In the interest of safety, wellness, and injury prevention; we encourage you to wear your sealbelt, if you smoke; quite smoking, and we encourage family to use a protective helmet for bicycling and other sporting events that present an increased risk for head injury. IF YOUR SYMPTOMS WORSEN OR NEW SYMPTOMS DEVELOP, OR YOU HAVE CONCERNS ABOUT YOUR CONDITION; OR IF YOUR CONDITION WORSENS WHILE YOU ARE WAITING FOR YOUR FOLLOW UP APPOINTMENT; EITHER CONTACT YOUR PRIMARY CARE DOCTOR, THE PHYSICIAN WHOSE NAME AND NUMBER YOU WERE GIVEN, OR RETURN TO THE ED IMMEDIATELY. Scripts Tamsulosin Hcl (FLOMAX) 0.4 Mg Cap.er.24h 0.4 MG PO DAILY for kidney stones for 7 Days, #7 CAP.SR Prov: ARIE CRENSHAW DO 06/30/20 ARIE CRENSHAW DO Jun 30, 2020 12:46
--- NOTE | 2020-06-30 13:04 | RAD ---
XR CHEST 1V History: Reason: abd pain / Spl. Instructions: / History: Comparison: August 23, 2015 Findings: Patchy bibasilar opacities. Possible small layering pleural effusions. Enlarged cardiac size. No pneu mothorax. Impression: 1. Patchy bibasilar opacities, may represent atelectasis or developing consolidations. If persistent clinical concern, recommend follow-up. Electronically signed by: Josef Agee DO (06/30/2020 1:01 PM) [id number]
--- NOTE | 2020-06-30 13:10 | EKG ---
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
[2020-06-30 13:11] LABS: BASO % 0 % (0-3); EOS # 0.2 x10^3/uL (0.0-0.7); EOS % 2 % (0-3); HEMATOCRIT 42.3 % (39.0-53.0); LYMPH # 2.4 x10^3/uL (1.0-4.8); LYMPH % 27 % (24-48); MEAN CORPUSCULAR HEMOGLOBIN 31 pg (25-35); MEAN CORPUSCULAR HGB CONC 33 g/dL (31-37); MEAN CORPUSCULAR VOLUME 94 fL (79-100); MONO % 11 % (0-9); NEUT # 5.5 x10^3uL (1.8-7.7); NEUT % 60 % (31-73); PLATELET COUNT 258 x10^3/uL (140-400); RED BLOOD COUNT 4.52 x10^6/uL (4.30-5.70); RED CELL DISTRIBUTION WIDTH 14.3 % (11.5-14.5); WHITE BLOOD COUNT 9.1 x10^3/uL (4.0-11.0)
[2020-06-30] MEDS ORDERED: IOHEXOL 300 MG/ML 75 ML VIAL. IV ONE (13:15)
[2020-06-30 13:22] LABS: CALCIUM 9.2 mg/dL (8.5-10.1); CREATININE 1.5 mg/dL (0.7-1.3); GFR 44.8; POTASSIUM 3.4 mmol/L (3.5-5.1)
[2020-06-30 13:28] LABS: ALBUMIN 3.2 g/dL (3.4-5.0); DIRECT BILIRUBIN 0.5 mg/dL (0.0-0.2); TOTAL BILIRUBIN 0.7 mg/dL (0.2-1.0); TOTAL PROTEIN 7.7 g/dL (6.4-8.2)
[2020-06-30] MEDS ORDERED: IOHEXOL 240 MG/ML 50ML VIAL. ONE (13:31)
--- NOTE | 2020-06-30 15:04 | RAD ---
CT STUDY OF THE ABDOMEN AND PELVIS WITHOUT CONTRAST CLINICAL INDICATIONS: Abdominal pain for 2 days after a laparoscopic cholecystectomy. Urinary retenti on. TECHNIQUE: Noncontrast helical CT scanning of the abdomen and pelvis was performed. Without contrast, the sensitivity to detect organ pathology and GI tract pathology is decreased. PQRS compliance Statement One or more of the following individualized dose reduction techniques were utilized for this study: 1. Automated exposure control 2. Adjustment of the mA and/or kV according to patient size 3. Use of iterative reconstruction technique COMPARISON: December 10, 2018. FINDINGS: Again seen is a cyst of the right lobe of the liver. The spleen is not enlarged. No pancrea tic enlargement is seen. The gallbladder is surgically absent. No extrahepatic biliary ductal dilatat ion is seen. No adrenal mass is evident. 2 small nonobstructing punctate stones lower pole left kidne y are seen. No hydronephrosis or hydroureter or ureteral stone is seen. Again seen are cysts of the l eft kidney. However, on the previous study, a lateral upper pole solid nodule is evident. This is not as well delineated today given the lack of IV contrast. Based on the contour bulge, there has been n o significant change measuring just under 2 cm. Urinary bladder is distended. Urinary bladder wall is smooth. No focal aneurysmal dilatation of the abdominal aorta is seen. No enlarged abdominal or pelv ic lymphadenopathy is evident. Prostate gland is mildly enlarged and indents the floor of the urinary bladder. The prostate gland measures 5.1 transversely. Colonic diverticulosis is seen most prominent ly involving the sigmoid colon without diverticulitis. There is nondistention of the colon. Enterocol ostomy is seen within the anterior mid abdomen. No obstructive bowel pattern is seen. Anterior abdomi nal wall scarring and edema is seen. On series 2 image 98, there is a small subcutaneous fluid collec tion within the anterior left lower abdominal wall subcutaneous soft tissues measuring 19 mm. Small a bscess is possible if there are clinical findings of such. No lytic process is seen. No lung base con solidation is evident. IMPRESSION: 2 small nonobstructing punctate stones of the lower pole left kidney. No hydronephrosis o r hydroureter or ureteral stone is seen. No definite change in size of solid nodule of the upper pole of the left kidney based on contour bulg e. Evaluation of the solid lesion is more difficult without IV contrast. Continued CT follow-up with IV contrast is recommended. Urinary bladder distention. Subcutaneous soft tissue edema of the anterior abdominal wall. Possible small abscess or fluid collec tion measuring 19 mm in size within the anterior left lower abdominal wall. This could represent a sm all fluid collection due to recent subcutaneous injection if this has been performed. Electronically signed by: Patrick Gamino MD (06/30/2020 3:02 PM) [id number]
[2020-06-30 15:56] LABS: BACTERIA,URINE 0 /HPF (0-FEW); BILIRUBIN,URINE NEG (NEG); CLARITY,URINE CLEAR; COLOR,URINE YELLOW; GLUCOSE,URINE 100 mg/dL (NEG); NITRITE,URINE NEG (NEG); RBC,URINE OCC /HPF (0-2); SQUAMOUS EPITHELIAL CELL,UR FEW /LPF; UROBILINOGEN,URINE 0.2 mg/dL (0.2 mg/dL); WBC,URINE OCC /HPF (0-4)
[2020-06-30] MEDS ORDERED: TAMS0.4C97 PO (16:39)
[2020-06-30 16:45] VITALS: BP 136/68
== END 2020-06-30 16:47 | disposition home or self-care (01) ==
LOC: ER 12:22
DX: N99.89 Other postprocedural complications and disorders of genitourinary system (principal); N28.89 Other specified disorders of kidney and ureter; Z79.899 Other long term (current) drug therapy; Z88.8 Allergy status to other drugs, medicaments and biological substances
CPT/HCPCS: 36415; 51702; 71045; 74176; 80048; 80076; 81001; 82550; 83605; 83690; 84484; 85025; 85610; 85730; 87040; 93005; 99285-25